=== PATIENT | female | born 1985 | race Caucasian/White ===

== ENCOUNTER 2023-04-29 19:45 | Emergency (ER) | payer OTHER, SELFPAY ==
--- NOTE | 2023-04-29 19:54 | ED.SKABFB ---
HPI - Skin/Abscess/Foreign Bdy General Chief complaint: Skin/Abscess/Foreign Body Stated complaint: right thumb infection Source: patient and RN notes reviewed History of Present Illness HPI narrative: 37-year-old female presents to urgent care with complaints redness and itching to her right thumb. Patient states on April 15 she was floating nerve refer when she noticed a complete was on her right thumb. Patient states she estimates that this bleach was on there for approximately tightness and hold off taking nothing of it. Patient states couple days later she began having redness to her right thumb and she called a telehealth doc, who placed her on Bactrim. Patient states she finished Bactrim in the symptoms were not completely gone so she contacted her doctor who placed her on a Medrol Dosepak. Patient states the redness did improve but the symptoms returned yesterday. Patient states the itchiness is going upper arm. Patient denies any drainage from the area. Denies any fevers, chills, or vomiting. Related Data Allergies Allergy/AdvReac Type Severity Reaction Status Date / Time No Known Allergies Allergy Unknown Verified 04/29/23 20:00 Review of Systems Review of Systems: CONSTITUTIONAL: Denies fever, chills, or sweats. EYES: Denies visual changes, redness, or discharge. ENT: Denies otalgia and sore throat CARDIOVASCULAR: Denies chest pain, palpitations, or edema. RESPIRATORY: Denies cough or dyspnea. GASTROINTESTINAL: Denies abdominal pain, nausea, vomiting, or diarrhea. GENITOURINARY: Denies dysuria or hematuria. SKIN: Right thumb redness and itching MUSCULOSKELETAL: Denies back pain, joint pain, or myalgia. NEUROLOGIC: Denies headache, numbness, or weakness. Pertinent positives per HPI. PMFSH Comments At the time of my signature, I reviewed and agree with the nursing past medical, surgical, social, and family history. There is no relevant family history pertinent to the patient complaint. Exam Narrative: GENERAL: This is a well-nourished, well-developed patient, in no apparent distress. HEAD: normocephalic, atraumatic. EYES: Sclera clear/white. Vision is grossly intact. EARS: External ears normal, auditory canals clear and without drainage, TMs normal without perforation. Hearing grossly intact. NOSE: External nose normal with no obvious nasal discharge, nares without redness, no rhinorrhea. THROAT: Mucous membranes moist, posterior pharynx clear. NECK: Neck supple, non-tender without lymphadenopathy, masses or thyromegaly. CARDIOVASCULAR: Regular rate and rhythm without murmurs, gallops, or rubs. RESPIRATORY: Clear to auscultation. Breath sounds equal bilaterally. No wheezes, rales, or rhonchi. GASTROINTESTINAL: Abdomen soft, non-tender, nondistended. Bowel sounds are active. No hepato-splenomegaly, or palpable masses. No guarding. SKIN: Moderate erythema noted around right thumb nail bed. Skin is dry. No area of fluctuance or drainage. NEURO: awake, alert, and oriented to person, place and time. There were no obvious focal neurologic abnormalities. EXTREMITIES: No clubbing, cyanosis, or edema. No joint tenderness, effusion, or edema noted. BACK: Nontender without deformity or crepitus. No flank tenderness. Course Course Level of Care: Express Care Visit Vital Signs Vital signs: Reviewed MDM - Skin/Abscess/Foreign Bdy MDM Narrative Medical decision making narrative: Clean with soap and water only; Avoid using alcohol and peroxide. Elevate the affected area if possible Alternate Tylenol/ibuprofen for as needed for pain Acetaminophen(Tylenol) 650-1000mg every 4-6hours with max of 4000mg/day. Nonsteroidal anti-inflammatory agent (NSAIDs-ibuprofen): 400mg every 4-6hours with max 2400mg/day Take antibiotic until it's gone. Please schedule a follow up visit with your personal physician for further evaluation and treatment within 3-5days OR if your symptoms persist, change or worsen significantly before you
[2023-04-29 19:59] VITALS: BP 155/91; PULSE 95; RESP 14; TEMP 36.5; O2SAT 100
[2023-04-29 20:00] VITALS: BP 155/91; PULSE 95; RESP 14; TEMP 36.5; O2SAT 100
== END 2023-04-29 20:06 | disposition home or self-care (01) ==
PROVIDERS: Emergency Provider Nurse Practitioner Family; PCP Physician Assistant
DX: L03.011 Cellulitis of right finger (principal)
CPT/HCPCS: 99203; G0463

== ENCOUNTER 2024-01-19 10:05 | Outpatient (CLI) | payer OTHER, SELFPAY ==
--- NOTE | ~2024-01-19 | MR_ITS ---
EXAMINATION: MR abdomen wo/w con DATE: 01/19/2024 11:41 INDICATION: Liver lesion TECHNIQUE: Magnetic resonance imaging (MRI) of the abdomen was performed without and with 16 mL Multi reyna intravenous contrast. Sequences included coronal T2-weighted SS-FSE, coronal and axial FS 2D-F IESTA, axial STIR FSE, axial T2-weighted SS-FSE, axial T2-weighted FS SS-FSE, axial diffusion-weighte d SE, axial dual-echo T1-weighted FSPGR, and axial and coronal T1-weighted LAVA. Postcontrast axial T 1-weighted LAVA images were obtained in a time course. Postcontrast coronal T1-weighted LAVA images w ere obtained. COMPARISON: None. FINDINGS: Heart size is normal. No pericardial or pleural effusion. There are couple large cavernous hepatic he mangiomas which are T2 hyperintense of less than simple fluid intensity with lobular peripheral jayro ns and with diagnostic typical pattern of peripheral discontiguous puddling of contrast isointense to the aorta which progressively fills in on the delayed imaging. These measure 3.8 cm at the junctions of segments 2 and 4A of the left hepatic lobe and 3.2 cm in segment 8 of the right hepatic lobe. Gra dient of dependent predominant sludge within the otherwise normal gallbladder. No intra or extra hepa tic biliary ductal dilation. Pancreas is normal with normal caliber main pancreatic duct. Spleen, johanne ateral adrenal glands and right kidney are normal. 6 mm T2 hyperintense cyst at the lower pole of the left kidney. Visualized portions of bowels are unremarkable. No pathologically enlarged abdominal or upper pelvic lymphadenopathy. Visualized bone marrow signal is normal throughout. IMPRESSION: 1. A couple large cavernous hemangiomas measuring 3.8 cm in the left hepatic lobe and 3.2 cm in the r ight hepatic lobe. Reviewed, dictated and finalized at location B. IMPRESSION: 1. A couple large cavernous hemangiomas measuring 3.8 cm in the left hepatic lo be and 3.2 cm in the right hepatic lobe.
== END 2024-01-19 10:06 | disposition home or self-care (01) ==
PROVIDERS: PCP Physician Assistant; Visit Provider Physician Assistant
DX: D18.03 Hemangioma of intra-abdominal structures (principal)
CPT/HCPCS: 74183; A9577